=== PATIENT | female | born 1960 | race Caucasian/White ===

== ENCOUNTER 2025-06-16 05:40 | Day surgery (SDC) | payer BC, SELFPAY ==
--- NOTE | 2025-06-12 23:45 | ESHP_ITS ---
RE: ROSS MCGOVERN : 1960 DATE OF ADMISSION: 06/16/2025 HISTORY OF PRESENT ILLNESS: This is a 64-year-old 1, para 1 with cervical dysplasia who presents for loop cone biopsy of the cervix. She had an endocervical curettage on colposcopy which showed UAMNG 1. Her pap smear showed low grade squamous intraepithelial lesion. ALLERGIES: NO KNOWN DRUG ALLERGIES. MEDICATIONS: Yuvafem 10 micrograms per vagina twice weekly. PAST MEDICAL HISTORY: Atrophic vaginitis, hyperlipidemia, vitamin D deficiency, cervical dysplasia, endometrial polyp. SOCIAL HISTORY: She denies any alcohol drug use or smoking. FAMILY HISTORY: Diabetes and brain cancer. PAST SURGICAL HISTORY: 03/2022, hysteroscopy, fractional dilatation and curettage and MyoSure removal of endometrial polyp. delivery 2001. PHYSICAL EXAMINATION: VITAL SIGNS: Blood pressure 140/62, heart rate 82, respirations 18, temperature 98.6, weight 141 pounds. HEENT: Oropharynx and sclerae clear. LUNGS: Clear to auscultation bilaterally. HEART: Regular rate and rhythm. ABDOMEN: Old Pfannenstiel scar noted. EXTREMITIES: Nontender. SKIN: No gross rashes or lesion. NEUROLOGIC: No focal deficit. ASSESSMENT AND PLAN: Cervical dysplasia. PLAN: Loop cone biopsy of the cervix. Informed consent was obtained. Patient has been made aware of the risks complication alternative benefits of the proposed procedure and she agrees. DT: 23:15:54 TT: 23:44:00 Ref: [id number] - TID: [id number] [facility]
--- NOTE | 2025-06-15 06:20 | EKG_ITS ---
[facility] Test Date: 2025-06-15 Pat Name: ROSS MCGOVERN Department: Room: - Gender: Female [employer]: RT STUDENT : 1960 Requested By: Ernesto Walker Order Number: [id number] Reading MD: Ernesto Walker Measurements Intervals Sherman Rate: 54 P: 86 SD: 155 QRS: 92 QRSD: 94 T: 78 QT: 426 QTc: 405 Interpretive Statements SINUS BRADYCARDIA WITH MARKED SINUS ARRHYTHMIA BORDERLINE RIGHT AXIS DEVIATION [QRS AXIS > 90] Compared to ECG 04/03/2022 12:10:50 Sinus rhythm no longer present /[id number]/[id number].pdf
[2025-06-15 08:13] VITALS: BMI 21.3
[2025-06-15 08:47] LABS: Basophils # (Auto) 0.1 Thou/mm3 (0.0-0.2); Basophils % (Auto) 2 % (0-2.5); Eosinophils # (Auto) 0.1 Thou/mm3 (0.0-0.5); Eosinophils % (Auto) 2 % (0-10); Hematocrit 37.9 % (36.0-46.0); Hemoglobin 12.6 g/dL (12.0-16.0); Immature Granulocytes Auto 0.01 Thou/mm3 (0.00-0.00); Lymphocytes # (Auto) 1.8 Thou/mm3 (1.0-4.8); Lymphocytes % (Auto) 35 % (10-50); Mean Corpuscular HGB Conc 33.2 g/dl (31.0-37.0); Mean Corpuscular Hemoglobin 31.3 pg (25.0-35.0); Mean Corpuscular Volume 94 fL (80-100); Monocytes # (Auto) 0.4 Thou/mm3 (0.0-0.8); Monocytes % (Auto) 8 % (0-12); Neutrophils # (Auto) 2.8 Thou/mm3 (1.8-7.7); Neutrophils % (Auto) 54 % (37-80); Nucleated Red Blood Cell # 0.00 Thou/mm3 (0.00-0.00); Nucleated Red Blood Cell % 0 /100 WBC (0); Platelet Count 264 Thou/mm3 (140-440); RDW Standard Deviation 46.4 fL (36.4-46.3); Red Blood Count 4.03 Miln/mm3 (4.00-5.20); White Blood Count 5.2 Thou/mm3 (3.6-11.0)
[2025-06-15 08:58] LABS: INR 1.0 (0.9-1.3); Partial Thromboplastin Time 27.6 Seconds (22.0-36.0); Prothrombin Time 10.8 Seconds (9.0-12.2)
[2025-06-15 09:02] LABS: Alanine Aminotransferase 15 U/L (10-49); Albumin, Serum 4.6 gm/dL (3.4-4.8); Albumin/Globulin Ratio 2.9 (1.2-2.2); Alkaline Phosphatase 52 U/L (46-116); Anion Gap 6 (7-16); Aspartate Amino Transferase 21 U/L (0-34); BUN/Creatinine Ratio 16 Ratio (12-20); Bilirubin,Total 0.4 mg/dL (0.3-1.2); Blood Urea Nitrogen 13 mg/dL (9-23); Calcium 9.1 mg/dL (8.3-10.6); Calcium (Corrected) 9.1 mg/dL (8.5-10.1); Carbon Dioxide 27.7 mMol/L (20.0-31.0); Chloride 108 mMol/L (98-107); Creatinine (Component) 0.8 mg/dL (0.6-1.3); Estimated Creatinine Clearance 71.3 mL/min (>60); Globulin 1.6 gm/dL (2.3-3.5); Glucose 88 mg/dL (74-106); Osmolality,Calculated 282 (275-295); Potassium 4.2 mMol/L (3.4-5.1); Sodium 142 mMol/L (136-145); Total Protein 6.2 gm/dL (5.7-8.2); eGFR > 60 See Note
--- NOTE | 2025-06-15 14:39 | SUR.PREOP ---
Pt notified to come in at 0545 tomorrow.
[2025-06-16] VITALS (9 sets, daily range): BP systolic 123–161; BP diastolic 73–94; PULSE 56–73; RESP 12–20; TEMP 36.4–36.7; O2SAT 100; BMI 20.9
--- NOTE | 2025-06-16 07:30 | CHAP ---
Visited with patient giving comfort and encouragement and prayer.
--- NOTE | 2025-06-16 07:30 | ESOP_ITS ---
Operative Note - [employer] [facility] Procedure Date of procedure: 06/16/25 Procedure Performed: LEEP Cone Biopsy of Cervix Endocervical Curettings Indication: Cervical Dysplasia Pre-Op diagnosis: Cervical Dysplasia Post-Op diagnosis: Cervical Dysplasia Anesthesia type: General Procedure description: After proper informed consent was obtained and the patient was made aware of the risks, complications, alternatives and benefits of the proposed procedure she was taken to the operating room where she underwent induction of general anesthesia.? She was placed in the dorsal lithotomy position.? A red rubber catheter was placed and the bladder drained of all its contents.? She was prepped and draped in the usual sterile fashion.? A timeout was performed.? A bivalve insulated speculum was placed in the vagina.? The cervix was painted with Lugol's solution.? The cervix was circumferentially injected with a 10 cc solution of dilute vasopressin (20 units and 100 cc of injectable saline).? Using the 2.0 x 2.0 cm loop electrode the squamocolumnar junction was excised and the specimen inked at 12:00.? A 1.0 x 1.0 loop electrode was utilized to obtain a Top-Hat specimen of the Endo cervix.? Using a Kevorkian curette the endocervical canal was curetted and specimen placed on Telfa.? All 3 specimens sent to pathology. ?Hemostasis was achieved with the Bovie cautery and application of Monsel solution.? All instruments were removed from the vagina.? Counts were correct.? She was reversed from general anesthesia in the supine position.? She was transferred to the recovery room in stable condition.? I discussed with the patient's the nature of her condition, the intraoperative findings, the expectation for recovery, all questions answered. Specimen: other (1. LEEP cone specimen inked at 12 2. Top had specimen 3. Endocervical currettings. ) Estimated blood loss (ml): 5 Findings: Grossly normal appearing cervix. Complications: none Surgical staff Surgeon Dr. Susan Carlos CRNA Operation Date: 06/16/25 07:45 <No data on this case meets the specified criteria> Diagnosis Discharge Diagnosis (1) Dysplasia, cervix uteri: Status: Acute Problem List Completed Was Problem List Reviewed/Reconciled?: Yes
--- NOTE | 2025-06-16 08:03 | SUR.PHASEI ---
0803: Pt. wakes to name then drifts back to sleep, vitals stable, breathing unlabored, no signs of distress, peripad in place CDI, no active bleed noted, report received from Chiquita ROSADO and Luisito MASSEY.
[2025-06-16] MEDS: fentaNYL CIT INJ 50 mCg/ML AMP 2ML IV (08:42)
--- NOTE | 2025-06-16 09:10 | SUR.PHASEII ---
0910: Pt. AAOx4, vitals stable, breathing unlabored, no complaint of pain or nausea, peripad in place CDI, no active bnleed noted, pt. tolerated sips of juice well, pt. ambulated to wheelchair with steady gait and no assist, no complications. Gave discharge instructions to the pt. and her ride, both verbalized understanding and had no further questions. Pt. left with all personal belongings.
== END 2025-06-16 09:10 | disposition home or self-care (01) ==
PROVIDERS: PCP Family Medicine; Referring Provider Specialist; Visit Provider Specialist
PROC: 0UBC7ZZ Excision of Cervix, Via Natural or Artificial Opening (ICD-10-PCS; CPT 57522; principal; 2025-06-16 07:30)
DX: N87.0 Mild cervical dysplasia (principal); Z01.810 Encounter for preprocedural cardiovascular examination; N72 Inflammatory disease of cervix uteri
CPT/HCPCS: 57522; 36415; 80053; 85025; 85610; 85730; 86850; 86900; 86901; 93005; A4217; A4649; J0131; J1885; J2250; J2598; J2704; J3010; J3490; A9270; J1596